=== PATIENT | female | born 1970 | race African-American/Black ===

== ENCOUNTER 2017-11-11 12:37 | Emergency (ER) | payer MEDICAID ==
[~2017-11-11] VITALS: Ht 165.1 cm; Wt 109.8 kg
[2017-11-11 12:46] VITALS: BP 155/92
--- NOTE | 2017-11-11 12:59 | Emergency Room Report ---
History of Present Illness General Chief Complaint: General Complaint Source: Patient Present Illness HPI 47 yo female patient presents to ER complaining of skin wound on left hand for 1 week. Patient reports getting larger in size. Patient denies bleeding or drainage. Denies blister. Reports recurrence of rash. Reports used medication previously without relief of symptoms; does not know what medication. Denies hx of trauma. Reports itching symptoms. Patient is a poor historian. Reports hx of similar lesions. Denies hx of syphilis or other STI. Denies fever, chest pain, SOB. Allergies: Coded Allergies: No Known Allergies (Unverified , 11/11/17) Patient History Past Medical History: see triage record Last Menstrual Period: 11/06/17 Reviewed Nursing Documentation: PMH: Agreed, PSxH: Agreed Nursing Documentation-PMH Past Medical History: No History, Except For Hx Diabetes: Yes Review of Systems All Other Systems: negative except mentioned in HPI Physical Exam Vital Signs Date Time Temp Pulse Resp B/P (MAP) Pulse Ox O2 Delivery O2 Flow Rate FiO2 11/11/17 12:46 97.9 82 18 155/92 98 Room Air 97.9 Sp02 EP Interpretation: reviewed, normal General Appearance: well appearing, no apparent distress, alert, GCS 15, non- toxic Head: normocephalic, atraumatic Eyes: bilateral eye normal inspection, bilateral eye PERRL ENT: hearing grossly normal, normal pharynx, no angioedema, normal voice, uvula midline, moist mucus membranes Neck: full range of motion Respiratory: lungs clear, normal breath sounds, no rhonchi, no respiratory distress, no accessory muscle use, no wheezing, speaking full sentences Cardiovascular #1: regular rate, rhythm, no edema Musculoskeletal: back normal, digits/nails normal, gait/station normal, normal range of motion, non-tender Neurologic: alert, oriented x3, responsive, motor strength/tone normal, sensory intact Psychiatric: mood/affect normal Skin: other - left palm on hypothenar eminence: 2cm lesion, no active draining , no erythema, no edema, no TTP, no pustules, no vesicles, no scaling Lymphatic: no adenopathy Medical Decision Making PA Attestation Dr. Montoya is my supervising Physician whom patient management has been discussed with. Diagnostic Impression: Primary Impression: Rash and nonspecific skin eruption ER Course Pt presents to ED c/o skin change on left hand palm. DDX considered but are not limited to cellulitis, dyshydrosis, blister, atopic dermatitis, psoriasis. VITAL SIGNS are WNL, patient is afebrile ED COURSE: PE rash consistent with dyshydrosis eczema, will treat accordingly. Patient seen and evaluated by Dr. Montoya. Agree with above diagnosis. Dr. Montoya provide prescription for prednisone treatment. Inform patient to followup with PCP for referral to [facility]. Patient reports understanding and agreement to treatment plan. Spoke on phone with patient uncle, answered questions regarding diagnosis and treatment. DISCHARGE: Rx provided for Prednisone Rx provided for Clobetasol ointment Do not wear gloves. At this time pt is stable for d/c to home. Patient resting comfortably, in no acute distress, nontoxic appearing, talking without difficulty. Will provide with patient care instructions and any necessary prescriptions. Patient to take medication as instructed. Care plan and follow-up instructions provided. Patient questions asked and answered. Followup with [facility] for testing. ER precautions given. Patient instructed to return to ER immediately for any new or worsening of symptoms. Last Vital Signs Date Time Temp Pulse Resp B/P (MAP) Pulse Ox O2 Delivery O2 Flow Rate FiO2 11/11/17 12:46 97.9 82 18 155/92 98 Room Air 97.9 Disposition: HOME, SELF-CARE Condition: Stable Scripts Clobetasol Propionate (CLOBETASOL PROPIONATE) 30 Gm Oint...g. 30 GM TP BID for 14 Days, GM Prov: Scott Cruz 11/11/17 Prednisone* (PREDNISONE*) 20 Mg Tablet 40 MG ORAL DAILY for 7 Days, #21 TAB Prov: KYRA MONTOYA M.D. 11/11/17 Patient Instructions: Eczema Additional Instructions: Followup with primary care provider in 3 -5 days for treatment and referral to derm. Take medications as directed. Patient questions asked and answered. ER precautions given, patient instructed to return to ER immediately for any new or worsening of symptoms. Scott Cruz Nov 11, 2017 12:59
[2017-11-11] MEDS ORDERED: CLOBETASOL PROP30 GM TP ×2 (13:14→13:47)
[2017-11-11] MEDS ORDERED: PREDNISONE20 MG ORAL (13:41)
[2017-11-11 14:08] VITALS: BP 143/92
== END 2017-11-11 14:08 | disposition home or self-care (01) ==
LOC: EMR 13:35
DX: R21 Rash and other nonspecific skin eruption (principal); E11.9 Type 2 diabetes mellitus without complications
CPT/HCPCS: 99284